=== PATIENT | female | born 1995 | race Caucasian/White ===

== ENCOUNTER 2018-07-14 18:37 | Inpatient (IN) | payer BC, OTHER ==
[~2018-07-14] VITALS: Ht 175.3 cm; Wt 63.5 kg
--- NOTE | 2018-07-14 10:03 | NUR ---
Pre-Assessment Patient met in intake office, patient is unkempt and disheveled with red eyes, she states that she is here to withdraw from Opiates ( Heroin IV ) and Benzodiazepines ( Valium and Ativan ). She states she last used 0.5G of heroin IV at 1pm today and 5 mg PO Ativan @ 2pm today. patient does not appear intoxicated at this time and is able to answer all questions clearly and concisely. VS BP 117/72, HR 100, RR 18, O2 SATS 93% T 98, she stands 5'9" and weighs 140lbs on standing scale She has No Known Allergies, Full code and Regular diet. Explained intake process and policy of controlled substances not allowed and will be destroyed if found on person or luggage, states she understands. Will continue with process when patient arrives on the unit.
[2018-07-14] MEDS ORDERED: diphenhydrAMINE 50 MG CAPSULE PO PRN (22:30)
[2018-07-14] MEDS ORDERED: DIAZEPAM 5 MG TABLET PO PRN (22:30)
[2018-07-14] MEDS ORDERED: MAG HYDROX/AL HYDROX/SIMETH 30 ML LIQUID UDC PO PRN (22:30)
[2018-07-14] MEDS ORDERED: MAGNESIUM HYDROXIDE 30 ML LIQUID UDC PO PRN (22:30)
[2018-07-14] MEDS ORDERED: ONDANSETRON 4 MG/2 ML VIAL IM PRN (22:30)
[2018-07-14] MEDS ORDERED: BUPRENORPHINE HCL 2 MG TAB.SUBL SL PRN (22:30)
[2018-07-14] MEDS ORDERED: ONDANSETRON ODT 4 MG TAB.RAPDIS SL PRN (22:30)
[2018-07-14] MEDS ORDERED: LOPERAMIDE HCL 2 MG CAPSULE PO PRN ×2 (22:30)
[2018-07-14] MEDS ORDERED: DICYCLOMINE HCL 20 MG TABLET PO PRN (22:30)
[2018-07-14] MEDS ORDERED: DIAZEPAM 10 MG TABLET PO PRN (22:30)
[2018-07-14] MEDS ORDERED: LORAZEPAM 2 MG/1 ML VIAL IM PRN (22:30)
[2018-07-14] MEDS ORDERED: ACETAMINOPHEN 325 MG TABLET PO PRN (22:30)
[2018-07-14] MEDS ORDERED: MIRALAX 17 GM POWD.PACK PO PRN (22:30)
[2018-07-14] MEDS ORDERED: IBUPROFEN 400 MG TABLET PO PRN (22:30)
[2018-07-14 22:50] LABS: BASOPHILS # (AUTO) 0.1 K/uL (0.0-8.0); BASOPHILS % (AUTO) 0.7 % (0.0-2.0); EOSINOPHILS % (AUTO) 0.6 % (0.0-7.0); HEMATOCRIT 44.7 % (31.2-41.9); HEMOGLOBIN 15.4 g/dL (10.9-14.3); LYMPHOCYTES # (AUTO) 1.6 K/uL (20.0-40.0); MEAN CORPUSCULAR HEMOGLOBIN 31.4 uug (24.7-32.8); MEAN CORPUSCULAR HGB CONC 34 g/dL (32.3-35.6); MEAN CORPUSCULAR VOLUME 91.5 fL (75.5-95.3); MONOCYTES # (AUTO) 0.6 K/uL (2.0-10.0); NEUTROPHILS # (AUTO) 5.5 K/uL (1.8-8.9); NEUTROPHILS % (AUTO) 70.7 % (38.5-71.5); PLATELET COUNT (AUTO) 315 K/uL (179-408); RED BLOOD CELL COUNT(AUTO) 4.88 MIL/uL (3.63-4.92); WHITE BLOOD COUNT (AUTO) 7.8 K/uL (3.8-11.8)
--- NOTE | 2018-07-14 23:00 | NUR ---
Admission Note: Patient is a 23 yr old female who was admitted to [facility] on 07/14/18 @ 2230 for a medically supervised withdrawal from Benzodiazepines ( Valium and Ativan ) and Opiates ( Heroin IV). She arrives disheveled and her eyes are red, she does not appear intoxicated and is able to provide a detailed report of her medical and substance abuse history. She states that she last used today : Ativan 5mg PO @ 2pm Heroin IV 0.5G @ 1pm today Valium last used 50mg PO on 07/11/18 Substance Use History: Ativan 6mg PO daily for past 3 weeks/ been using for 3 months ( Prescription) Valium 50mg PO daily for past 3 weeks/ been using for 3 months ( Prescription) Heroin IV 0.5G IV daily for past 3 weeks/ been using for 3 years. Her motivation she says is I need to get sober, nothing is working anymore. 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 Patient states that up until 3 weeks ago she had been sober , that her longest period of sobriety has been 4 months July 2017 to December 2017 when she spent 5 months inpatient at [facility]. Treatment History: [facility] February 2018 for 12 days [facility] January 2018 for 3 weeks [facility] 07/2017- 12/2017 for 5 months. Her barriers to staying sober are negative influences in her life, old friends who are still abusing drugs and her inability to say no to peer pressure. She has an extensive medical History due to pallavi MRSA Septicemia due to her IV drug use which led to open heart surgery x 5: 10/2016 MRSA Septicemia was hospitalized for 6 weeks and treated with IV Vancomycin. January 21 2017 Open heart surgery, abscess on heart removed , quadruple bypass, 2 valves replaced, 1 valve repaired, 6 weeks more of IV Vanco ( [facility]) March 2017 sober for 2 weeks , used heroin IV for 1 month, visit to [facility] showed vegetation on heart valve. ( [facility]) June 2017 open heart surgery , tricuspid valve replaced. 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 Mar 17 2018 Open heart surgery, replace 3 valves, removed abscess, quadruple bypass ( [facility]) Mar 19 2018 Internal bleeding after open heart surgery discovered, main artery was cut, surgery to repair. Despite all these complications she continues to use IV Heroin, when asked if that wasnt a warning sign she should stop she shrugs her shoulders and says it wasnt, I cant stop using. 1 month ago she purposely overdosed on 45 pills of Seroquel Medications: Lamictal 200mg PO daily in AM Gabapentin 600mg PO TID Remeron 30mg PO HS Strattera 40mg PO daily for ADHD She states that while at the [facility] in 2016 she was diagnosed with Anxiety, depression, Bipolar2 and PTSD She has family support from her parents and 2 sisters, she would like to go to Inpatient treatment at [facility] for 30 days after detox. 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 Patient states her withdrawal symptoms when she detoxs are : chills, diaphoresis, N/V, clammy skin, body aches and spasms. Height is 5' 9" 140lbs per standing scale. She has a 7" well healed scar on chest to navel from heart surgery and scars on thighs. Admitting COWS =17 ELENA 14. Addendum: 07/16/18 at 0230 by ADIEL SOLER RN Patient positive for hepatitis C
--- NOTE | 2018-07-14 23:00 | NUR ---
Confiscation of found contraband/ medication 4 Seroquel pills/ 100mg po found in Patients hat along with a syringe and patient safety officer confiscated and destroyed by Betty Velásquez CN
[2018-07-14 23:05] LABS: *URINE HCG, QUAL NEGATIVE (NEGATIVE)
[2018-07-14] MEDS ORDERED: [UNRECOGNIZED DRUG - CODE] PO (23:08)
[2018-07-14] MEDS ORDERED: FURO-151 PO (23:08)
[2018-07-14] MEDS ORDERED: MIRT30TA7 PO (23:08)
[2018-07-14] MEDS ORDERED: ATOM40CA PO (23:08)
[2018-07-14] MEDS ORDERED: LAMO200T PO (23:08)
[2018-07-14] MEDS ORDERED: GABA-534 PO (23:08)
[2018-07-14] MEDS ORDERED: LAMO25TA PO (23:08)
[2018-07-14] MEDS ORDERED: LORA1TAB PO (23:08)
[2018-07-14 23:09] LABS: *AMPHETAMINE, URINE NEGATIVE (NEGATIVE); *BARBITURATE, URINE NEGATIVE (NEGATIVE); *CANNABINOID, URINE NEGATIVE (NEGATIVE); *COCCAINE, URINE NEGATIVE (NEGATIVE); *OPIATE, URINE POSITIVE (NEGATIVE); *PHENCYCLIDINE SCREEN,URINE NEGATIVE (NEGATIVE)
[2018-07-14 23:12] LABS: ALANINE AMINOTRANSFERASE 25 U/L (14-59); ALKALINE PHOSPHATASE 68 U/L (50-136); AMYLASE 45 U/L (25-115); ASPARTATE AMINOTRANSFERASE 19 U/L (15-37); BILIRUBIN,TOTAL 0.5 mg/dL (0.2-1.0); CARBON DIOXIDE 26 mmol/L (21-32); CHLORIDE 103 mmol/L (98-107); CREATININE 0.8 mg/dL (0.6-1.3); GLUCOSE 95 mg/dL (74-106); LIPASE 77 U/L (73-393); MAGNESIUM 1.8 mg/dL (1.8-2.4); TOTAL PROTEIN, SERUM 7.9 g/dL (6.4-8.2); UREA NITROGEN, BLOOD 10 mg/dL (7-18)
[2018-07-14 23:17] LABS: ETHANOL < 3 MG/DL (0-0)
[2018-07-14 23:23] LABS: THYROID STIMULATING HORMONE 1.129 mIU/mL (0.358-3.740)
[2018-07-15] VITALS: BP 136/80
[2018-07-15] MEDS: DIAZEPAM 10 MG TABLET PO PRN ×2 (00:44→21:16)
--- NOTE | 2018-07-15 00:45 | NUR ---
CIWA 17 Valium 20 mg PO given for CIWA 17 per MD protocol for s/s of withdrawal Patient displays diaphoresis, shakiness, goose bumps, dilated pupils, increased anxiety and difficulty thinking clearly.
[2018-07-15 04:10] VITALS: BP 94/60
--- NOTE | 2018-07-15 06:58 | NUR ---
End Of Shift: Patient is 23 yr old female who was admitted to [place] on 07/14/18 for a medically supervised withdrawal from Benzodiazepines ( Valium and Ativan) and Opiates ( heroin). She has not been placed on any taper yet and is still to be seen by MD. PRN medications given on PM shift : Valium 20mg PO. She had a fluid intake this shift of 750ml, 3 voids and 0 BM, she slept for 6 hours and last COWS was 18 and CIWA 17 @ 0100. Continue to offer support and encouragement. Endorsed to day shift.
--- NOTE | 2018-07-15 07:30 | NUR ---
START OF SHIFT Endorse rcvd from ongoing nurse, PRN Valium 20mg PO for CIWA 18, client slept 6 hrs. Last CIWA 18/ COWS 17 @ 0100. Client is in bed, lying on her R side, she sounds asleep, easy to arouse. RR 16, even, non-labored. Call light within reach. Bedside table noted with 10 un-opened snack bags and 7 bottles of juice. Will continue to monitor. Call light within reach.
[2018-07-15 08:00] VITALS: BP 99/59
[2018-07-15] MEDS ORDERED: TUBERCULIN,PURIF.PROT.DERIV. 5 TU/0.1 ML TEST ID ONE (09:00)
[2018-07-15] MEDS: PHENOBARBITAL 60 MG TABLET PO SCH ×4 (09:46→20:02)
[2018-07-15] MEDS: BUPRENORPHINE HCL 2 MG TAB.SUBL SL SCH ×3 (09:46→20:02)
[2018-07-15] MEDS: MULTIVITAMINS,THERAPEUTIC TABLET PO SCH (09:46)
--- NOTE | 2018-07-15 09:46 | NUR ---
PPD Test administered to L forearm.
--- NOTE | 2018-07-15 09:47 | NUR ---
CIWA 19 / COWS 18 Client with [place] under eyes, presents with anxiety, irritability, skin moist, flushed face, enlarged pupil, tremors, yawning, emotional volatility, and difficult concentrating. Client reports generalized body aches 5/10, nausea, stomach cramps, sweats, a sense of panic, and no desire to get off bed. Schedule Subutex 4mg SL, Phenobarbital 30mg PO administered. Encourage client to verbalized feelings of despair, support offered. Encourage client to increase PO fluid as tolerated to facilitate detox. Call light within reach.
[2018-07-15 12:00] VITALS: BP 108/77
[2018-07-15] MEDS: GABAPENTIN 300 MG CAPSULE PO SCH ×2 (13:00→16:55)
--- NOTE | 2018-07-15 13:00 | NUR ---
CIWA 17 / COWS 17 Client present with tremors, anxiety, restlessness, emotional volatility, pins and needle on bilateral lower extremities, agitation, anhedonia, difficulty concentrating, malaise, fatigue, chills, hot flashes, sweats, and poor appetite. Scheduled Phenobarbital 30mg PO, Gabapentin 300mg PO administered. Call light within reach.
[2018-07-15] MEDS: METHOCARBAMOL 750 MG TABLET PO PRN ×2 (13:06→20:02)
--- NOTE | 2018-07-15 13:06 | NUR ---
PRN Robaxin 750mg PO for Myalgia on BLE. Call light within reach.
--- NOTE | 2018-07-15 14:06 | NUR ---
Reassess PRN Robaxin 750mg, client reports slight relief from myalgia on BLE. Call light within reach.
[2018-07-15 16:55] VITALS: BP 112/79
[2018-07-15] MEDS: ATOMOXETINE 40 MG PO SCH (16:55)
--- NOTE | 2018-07-15 16:55 | NUR ---
CIWA 17 / COWS 16 Client continues to present with tremors, anxiety, restlessness, pins and needle feeling in both legs, anhedonia, difficulty concentrating, malaise, fatigue, chills, hot flashes, clammy skin, agitation, nausea, and poor appetite. Scheduled Phenobarbital 30mg PO, Gabapentin 300mg PO administered. Call light within reach.
--- NOTE | 2018-07-15 19:21 | NUR ---
END OF SHIFT Endorse client to incoming nurse, client is in room, a/o x 4. Client continues to present with anxiety, agitation, nausea, emotional volatility, flushed face skin, clammy skin, poor appetite, stomach cramps, and fatigue. Client's with last CIWA 17 / COWS 16 @ 1700. Adequate PO fluid intake 1850mL, void x 3. Consumes 50% of meals. Call light within reach.
--- NOTE | 2018-07-15 19:30 | NUR ---
Start of Shift: Patient is a 23 yr old female who was admitted to [facility] on 07/14/18 for a medically supervised withdrawal from Benzodiazepines ( Valium and Ativan ) and Opiates ( heroin IV), she has been placed on a 4 day Phenobarbital taper and 4 day Subutex taper and this is day 1 No PRN medications were given today, she attended group therapy and her last COWS was 16 and CIWA 17 @ 1600. Currently she is in the Rec Room watching TV with her peers. Continue to follow MD plan of care and offer support as needed.
[2018-07-15 20:00] VITALS: BP 119/85
--- NOTE | 2018-07-15 20:00 | NUR ---
PRN Robaxin 750MG PO given for generalized muscle aches 05/22 will reassess
[2018-07-15] MEDS: LAMOTRIGINE 25 MG TABLET PO SCH (20:02)
--- NOTE | 2018-07-15 21:00 | NUR ---
PRN Reassess Robaxin 750mg PO effective per pt report, pain level now 2/10
--- NOTE | 2018-07-15 21:00 | NUR ---
COWS 14 CIWA 17 Patient presents with increased anxiety, irritability, difficulty concentrating, restlessness and lethargy. Per PRN protocol Valium 20mg PO will be given
--- NOTE | 2018-07-15 21:16 | NUR ---
PRN Valium Valium 20mg PO given for CIWA 17 per MD protocol withdrawal symptoms present as increased anxiety, restlessness, irritability and difficulty thinking clearly.
--- NOTE | 2018-07-15 22:16 | NUR ---
Valium Reassess Patient states Valium 20mg PO was effective, anxiety and irritation have decreased.Valium effective
[2018-07-15] MEDS: MIRTAZAPINE 15 MG TABLET PO SCH (22:25)
--- NOTE | 2018-07-16 | NUR ---
CIWA/VITALS patient refused vitals and wants to sleep through the night, RR 14, breathing even and unlabored, call light within reach.
--- NOTE | 2018-07-16 04:00 | NUR ---
CIWA/VITALS patient refused vitals and wants to sleep through the night, RR 14, breathing even and unlabored, call light within reach.
[2018-07-16 05:00] VITALS: BP 112/59
--- NOTE | 2018-07-16 06:50 | NUR ---
End Of Shift: Patient is 23 yr old female who was admitted to [facility] on 07/14/18 for a medically supervised withdrawal from Benzodiazepines ( Valium and Ativan) and Opiates ( heroin). She has been placed on a 4 day Phenobarbital and 4 day Subutex taper which started 07/15/18 and this is day 2. PRN medications given this shift: Robaxin and Valium 20mg PO, she had a fluid intake of 800ML, 2 voids and 0 BM, she slept for 7 hours and last COWS was 14 and CIWA 17 @ 8pm. She is motivated to learn new coping skills and is eager to attend groups with her peers. Continue to offer support and encouragement. Endorsed to day shift.
[2018-07-16 08:00] VITALS: BP 90/60
--- NOTE | 2018-07-16 08:10 | NUR ---
START OF SHIFT: Received PT A/O X 4. She presents with anxious mood and congruent affect. Her pupils are moderately dilated. She reports body aches, fatigue,anxiety,restlessness,sweats and chills. Pheno/Subutex taper in progress to manage s/s of w/d. COWS 14 CIWA 12. Encouraged increased fluids to promote wellness. Sz precautions noted. Encouraged group attendance to improve coping skills and prevent relapse.Will continue to monitor and offer support
[2018-07-16] MEDS: ATOMOXETINE 40 MG PO SCH (08:59)
[2018-07-16] MEDS ORDERED: BUPRENORPHINE HCL 2 MG TAB.SUBL SL SCH (09:00)
[2018-07-16] MEDS: FUROSEMIDE 40 MG TABLET PO SCH (09:00)
[2018-07-16] MEDS: GABAPENTIN 300 MG CAPSULE PO SCH ×3 (09:00→17:38)
[2018-07-16] MEDS: PHENOBARBITAL 60 MG TABLET PO SCH ×3 (09:03→21:11)
[2018-07-16] MEDS: MULTIVITAMINS,THERAPEUTIC TABLET PO SCH (09:03)
[2018-07-16 12:00] VITALS: BP 106/79
--- NOTE | 2018-07-16 12:10 | NUR ---
COWS 13 CIWA 13. She reports sweats,chills,anxiety,body aches,poor appetite and fatigue.
--- NOTE | 2018-07-16 12:41 | NUR ---
Therapist prompted client to attend group therapy sessions.
[2018-07-16] MEDS: BUPRENORPHINE HCL 2 MG TAB.SUBL SL SCH ×2 (14:56→21:13)
[2018-07-16 16:00] VITALS: BP 90/60
--- NOTE | 2018-07-16 18:50 | NUR ---
END OF SHIFT: Pt continues on Phenobarb/Subutex taper to manage s/s of w/d which include body aches,sweats,chills,anxiety,irritability and restlessness. She was compliant with increased fluids.She states detox meds are effective. She attended some groups and interacted with peers. Pt has a fair appetite. COWS 12 CIWA 10 Will pass shift report to [facility] night nurse.
--- NOTE | 2018-07-16 19:30 | NUR ---
START OF SHIFT Received 23 year old male female patient admitted on 07/14/18 for Benzodiazepine ( Valium & Ativan) and Opiate (Heroin) withdrawal. Pt is alert and oriented x4. Pt is noted with anxiety, chills, sweats, agitation, runny nose, body aches, restlessness, and irritability. She is currently receiving a 4 day Phenobarbital and 4 day Subutex taper and is tolerating well. Per endorsement, she did not receive or request PRN medications. Last COWS:12, CIWA:10 at 1600. Breathing is even and unlabored, safety measures in place. Will monitor.
[2018-07-16 20:00] VITALS: BP 112/81
--- NOTE | 2018-07-16 20:00 | NUR ---
COWS/CIWA Pt complains of body aches, chills, sweats, runny nose, anxiety, agitation, and restlessness. COWS:11, CIWA:9 prior to medication administration. Will monitor.
[2018-07-16] MEDS: LAMOTRIGINE 25 MG TABLET PO SCH (21:11)
[2018-07-16] MEDS: MIRTAZAPINE 15 MG TABLET PO SCH (21:12)
--- NOTE | 2018-07-17 | NUR ---
VITALS REFUSED/COWS, CIWA DEFERRED 0000 vitals refused. COWS and CIWA deferred d/t pt lying in bed with eyes closed noted to be asleep. Breathing even and unlabored, safety measures in place. Will monitor.
--- NOTE | 2018-07-17 01:40 | NUR ---
COWS/CIWA Pt complains of runny nose, anxiety, agitation, body aches, chills/sweats. COWS:10, CIWA:8. Will continue to monitor.
[2018-07-17 01:42] VITALS: BP 115/85
--- NOTE | 2018-07-17 04:00 | NUR ---
VITALS REFUSED/COWS, CIWA DEFERRED 0400 vitals refused. COWS and CIWA deferred d/t pt lying in bed with eyes closed noted to be asleep. Breathing even and unlabored, safety measures in place. Will continue to monitor.
--- NOTE | 2018-07-17 07:15 | NUR ---
END OF SHIFT Pt is a 23 year old male female patient admitted on 07/14/18 for Benzodiazepine ( Valium & Ativan) and Opiate (Heroin) withdrawal. She remains alert and oriented x4. She was noted with anxiety, chills, sweats, agitation, runny nose, body aches, restlessness, and irritability during the shift. She continues on a 4 day Phenobarbital and 4 day Subutex taper and is tolerating well. She did not receive or request PRN medications. She slept a total of 6 hrs, Intake: 691mL, Void: x4, BM:0, last COWS:10, CIWA:8 at 0140. Breathing is even and unlabored, safety measures in place. Endorsed to AM shift.
--- NOTE | 2018-07-17 07:50 | NUR ---
Start Of Shift / COWS 12 and CIWA 11 Pt is a 23 y/o F admitted on 07/14/18 for medically suprvised benzo and opiate withdrawal. Pt is placed on a 4 day phenobarbital and subutex taper; today being the second day and tolerating well. Received pt laying in bed, drowsy from just waking up from sleeping. Pt has a disheveled appearance, a flat affect, depressive mood. Pt presents agitation, anxiety, restlessness, irritability, tremors, body aches, sweating, cold/hot flashes, goosebumps, nasal congestion and tremors noted. Educated pt with todays med regimen, plan of care and s/s to report. Encouraged pt to increase fluids to facilitate in detox. Side rails upx2, bed in lowest position. Call light is within reach. Safety measures in place. Will continue to monitor.
[2018-07-17 08:00] VITALS: BP 97/64
[2018-07-17] MEDS: PHENOBARBITAL 60 MG TABLET PO SCH ×2 (09:13→21:20)
[2018-07-17] MEDS: BUPRENORPHINE HCL 2 MG TAB.SUBL SL SCH ×3 (09:13→21:21)
[2018-07-17] MEDS: MULTIVITAMINS,THERAPEUTIC TABLET PO SCH (09:13)
[2018-07-17] MEDS: GABAPENTIN 300 MG CAPSULE PO SCH ×3 (09:13→16:46)
[2018-07-17] MEDS: ATOMOXETINE 40 MG PO SCH (09:25)
[2018-07-17] MEDS: FUROSEMIDE 40 MG TABLET PO SCH (09:25)
[2018-07-17 12:00] VITALS: BP 118/74
--- NOTE | 2018-07-17 12:00 | NUR ---
COWS 15 / CIWA 13 Pt continues to have a depressive and anxious mood; pt has just left group and has increased anxiety, agitation, restlessness, irritability, tremors, sweating, piloerection of the skin, large dilation of the pupils, cold/hot flashes, generalized body aches, sensitivity to the light, nasal congestion and tremors noted. scheduled meds to be given. Refuses prns at this time. Will continue to monitor.
[2018-07-17] MEDS ORDERED: CLONIDINE HCL 0.1 MG TABLET PO PRN (13:45)
[2018-07-17 14:11] LABS: HEPATITIS B SURFACE AG Negative (Negative)
[2018-07-17 16:00] VITALS: BP 110/82
--- NOTE | 2018-07-17 16:30 | NUR ---
COWS 15 / CIWA 13 Pt has just exited group and is impatiently waiting to go downstairs to the patio. Explained to pt that she needs to get her VS checked first. Pt continues to present anxiety, agitation, restlessness, tremors, sweating, piloerection of the skin, large dilation of the pupils, cold/hot flashes, generalized body aches, sensitivity to the light, nasal congestion and tremors noted. Scheduled gabapentin to be given now. Refuses prns at this time. Will continue to monitor.
--- NOTE | 2018-07-17 18:34 | NUR ---
End Of Shift Pt continues to have large dilated pupils, intermittent piloerection of the skin, anxiety, and restlessness. Pt attended all groups and states she is trying hard to participate. Pt verbalized subutex and phenobarbital taper has been effective in managing her s/s of witdrawal. No prns given. Last COWS 15 and CIWA 13. Safety measures in place. Endorsement will be given to shift commander nurse.
--- NOTE | 2018-07-17 18:52 | NUR ---
START OF SHIFT NOTE: The patient is a 23 year old female admitted to [facility] on 07/14/2018 for medically supervised from Benzodiazepines and Opioid withdrawal, continues ordered 4 day Phenobarbital and 4 day Subutex tapers (today is second day), which tolerated well. Patient is alert and oriented x4, with steady gait, and with clear soft speech, cooperative, and verbally appropriate. Patient appears sad, worried, with anxious mood and flat affect. Patient noted disheveled, unkempt, with uncombed hair. Patient denies SI/HI. The most recent COWS=15, CIWA=13 at 1600. During day shift patient experienced moderate withdrawal symptoms such as anxiety, agitation, irritability, bilateral dilated pupils, nervousness, general body aches, headache, sweating, bilateral tremors that can be felt not observe, goose bumps, restlessness, and fatigue per day shift nurse report. Patient remains compliant with treatment, medications, and diet regimen. Encouraged to attend group activities. Safe and calm environment provided. Encouraged to intake fluids as tolerated. All needs met. Safety measures: Call light within reach, bed locked in lowest position, padded bed rails up x2. Endorsed by day shift nurse.
[2018-07-17 20:00] VITALS: BP 105/77
--- NOTE | 2018-07-17 20:00 | NUR ---
COWS/CIWA ASSESSMENT COWS=14,CIWA=12 at 2000. The patient experienced moderate withdrawal symptoms such as anxiety, agitation, irritability, bilateral dilated pupils, nervousness, severe general body aches, headache, sweating, stomach cramps, bilateral tremors, restlessness, fatigue, and yawning. Ordered medications scheduled for 2099 will be administrated. Safe and calm environment provided. All needs met. Safety measures: Call light within reach, bed locked in lowest position, padded bed rails up x2. Will continue to monitor closely.
[2018-07-17] MEDS: MIRTAZAPINE 15 MG TABLET PO SCH (21:21)
[2018-07-17] MEDS: LAMOTRIGINE 25 MG TABLET PO SCH (21:21)
--- NOTE | 2018-07-18 | NUR ---
VS REFUSED, COWS/CIWA DEFERRED Patient sleeping on her side, respirations are unlabored and even, RR:15. Patient refused VS at 0000, COWS/CIWA differed at 0000, to be assessed while patient will awake. Safe and calm environment provided. All needs met. Safety measures: Call light within reach, bed locked in lowest position, padded bed rails up x2.
--- NOTE | 2018-07-18 04:00 | NUR ---
VS REFUSED, COWS/CIWA DEFERRED Patient sleeping on her side, respirations are unlabored and even, RR:15. Patient refused VS at 0000, COWS/CIWA differed at 0000, to be assessed while patient will awake. Safe and calm environment provided. All needs met. Safety measures: Call light within reach, bed locked in lowest position, padded bed rails up x2. Addendum: 07/18/18 at 0436 by MILLIE OVIEDO RN Patient refused VS at 0400, COWS/CIWA differed at 0400, to be assessed while patient will awake.
--- NOTE | 2018-07-18 07:16 | NUR ---
END OF SHIFT NOTE: The patient is a 23 year old female admitted to [facility] on 07/14/2018 for medically supervised from Benzodiazepines and Opioid withdrawal, continues ordered 4 day Phenobarbital and 4 day Subutex tapers (today is second day), which tolerated well. Patient is alert and oriented x4, with steady gait, and with clear soft speech, cooperative, and verbally appropriate. Patient appears sad, worried, with anxious mood and flat affect. Patient noted disheveled, unkempt, with uncombed hair. COWS=14,CIWA=12 at 2000. Patient refused VS at 0000 and at 0400, COWS/CIWA differed at 0000 and 0400. Throughout my shift patient experienced moderate withdrawal symptoms such as anxiety, agitation, irritability, bilateral dilated pupils, nervousness, severe general body aches, headache, sweating, stomach cramps, bilateral tremors, restlessness, fatigue, and yawning. During my shift patient experienced mild withdrawal symptoms such as anxiety, agitation, irritability, nervousness, sweating, bilateral tremors, and restlessness. Patient remains compliant with treatment, medications, and diet regimen. Patient slept for 6 hours, intake 1,210 ml, output: voided x2. Safe and calm environment provided. Encouraged to intake fluids as tolerated. All needs met. Safety measures: Call light within reach, bed locked in lowest position, padded bed rails up x2. Endorsed to day shift nurse.
--- NOTE | 2018-07-18 07:51 | NUR ---
Start Of Shift / COWS 14 and CIWA 12 Pt is a 23 y/o F admitted on 07/14/18 for medically suprvised benzo and opiate withdrawal. Pt is placed on a 4 day phenobarbital and subutex taper; today being the third day and pt is tolerating well. Received pt laying in bed, drowsy, pt has a flat affect, poor eye contact, disheveled appearance, and a depressive mood. Pt presents large dilated pupils, agitation, anxiety, restlessness, irritability, tremors, sweating, cold/hot flashes, goosebumps, nasal congestion generalized body aches and tremors noted. Educated pt with todays med regimen, plan of care and s/s to report. Encouraged pt to increase fluids to facilitate in detox. Side rails upx2, bed in lowest position. Call light is within reach. Safety measures in place. Will continue to monitor.
[2018-07-18 08:06] VITALS: BP 97/67
[2018-07-18] MEDS ORDERED: PHENOBARBITAL 60 MG TABLET PO SCH (09:00)
[2018-07-18] MEDS ORDERED: BUPRENORPHINE HCL 2 MG TAB.SUBL SL SCH (09:00)
[2018-07-18] MEDS: ATOMOXETINE 40 MG PO SCH (09:36)
[2018-07-18] MEDS: GABAPENTIN 300 MG CAPSULE PO SCH ×3 (09:37→18:10)
[2018-07-18] MEDS: MULTIVITAMINS,THERAPEUTIC TABLET PO SCH (09:37)
[2018-07-18] MEDS: FUROSEMIDE 40 MG TABLET PO SCH (09:37)
[2018-07-18 12:36] VITALS: BP 86/56
--- NOTE | 2018-07-18 12:36 | NUR ---
COWS 14 and CIWA 12 Pt has returned from group and is currently laying in bed, with eyes closed stating she wants to take a nap. Pt continues to presents large dilated pupils, agitation, anxiety, restlessness, irritability, tremors, sweating, cold/hot flashes, goosebumps, nasal congestion generalized body aches and tremors noted. Refuses prns at this time. Safety measures in place. Will continue to monitor.
--- NOTE | 2018-07-18 13:21 | NUR ---
Therapist prompted client to attend group counseling sessions.
[2018-07-18] MEDS ORDERED: CLON0.1T14 PO (15:01)
[2018-07-18] MEDS ORDERED: HYDR-3895 PO (15:01)
[2018-07-18] MEDS: CLONIDINE HCL 0.1 MG TABLET PO PRN ×2 (15:02→21:16)
[2018-07-18 16:30] VITALS: BP 102/67
--- NOTE | 2018-07-18 16:30 | NUR ---
COWS 11 and CIWA 10 Pt continues to presents chills, states she is beginning to feel increased alternating of hot and cold, sweating, agitation, anxiety, restlessness, irritability, tremors, intermittent goosebumps, nasal congestion, generalized body aches and tremors noted. Refuses prns at this time. Safety measures in place. Will continue to monitor.
--- NOTE | 2018-07-18 19:13 | NUR ---
End Of Shift Pt has finished the subutex and phenobarbital tapers and tolerated well. Pt is scheduled to be discharged tomorrow. Pt verbalized that she was beginning to feel a slight increase in opiate withdrawal and was given clonidine 0.1 mg po prn. Pt has exhibited elevated HR; 107 @1630. Last COWS 11 and CIWA 10. Safety measures in place. Endorsement will be given to shift boss nurse.
--- NOTE | 2018-07-18 19:25 | NUR ---
START OF SHIFT Patient is a 23-year-old female admitted on 07/14/18 for opiate and benzodiazepine withdrawal. Patient has completed a 4-day Phenobarbital taper and a 4-day Subutex taper, tolerated well, scheduled for discharge tomorrow. Patient's last COWS was 11, last CIWA was 10, per endorsement. Patient received PRN Clonidine earlier this afternoon for complaints of anxiety, chills, and diaphoresis. PRN Clonidine was noted to be mildly effective. Upon assessment, patient is alert and oriented x4. Patient complains of feeling tired, achy, and "no energy." Patient states, "I don't feel good. I've had chills and sweats all day." Patient's room is cluttered with several food and beverage wrappers and containers strewn about. Patient is on fall and seizure precautions with no history of seizure. Safety measures in place, side rails up x2, bed locked in low position, call light within reach. Medications scheduled, will continue to monitor.
[2018-07-18 20:00] VITALS: BP 111/78
--- NOTE | 2018-07-18 20:00 | NUR ---
COWS 14, CIWA 11 Patient reports feeling unwell, complaining of cold/hot sweats, chills, and diaphoresis. Patient reports anxiety and restlessness. Current COWS 14, CIWA 11. SN to administer meds as ordered.
[2018-07-18] MEDS: LAMOTRIGINE 25 MG TABLET PO SCH (21:16)
[2018-07-18] MEDS: HYDROXYZINE PAMOATE 25 MG CAPSULE PO PRN (21:16)
--- NOTE | 2018-07-18 21:16 | NUR ---
PRN CLONIDINE & VISTARIL Patient complains of anxiety, agitation, restlessness, and irritability. PRN Clonidine and Vistaril given PO. Safety measures in place, side rails up x2, bed locked in low position, call light within reach. Will monitor for effectiveness.
[2018-07-18] MEDS ORDERED: LAMO25TA5 PO (21:19)
[2018-07-18] MEDS ORDERED: GABA-534 PO (21:19)
[2018-07-18] MEDS ORDERED: MIRT15TA7 PO (21:19)
[2018-07-18] MEDS ORDERED: METH-406 PO (21:19)
[2018-07-18] MEDS ORDERED: FURO40TA5 PO (21:19)
[2018-07-18] MEDS: METHOCARBAMOL 750 MG TABLET PO PRN (21:24)
--- NOTE | 2018-07-18 21:24 | NUR ---
PRN ROBAXIN Patient also complains of muscle aches, stating, "I feel tired and achy." PRN Robaxin 750mg given PO. Safety measures in place, call light within reach. Will monitor for effectiveness.
[2018-07-18] MEDS: MIRTAZAPINE 15 MG TABLET PO SCH (22:15)
--- NOTE | 2018-07-18 22:16 | NUR ---
PRN CLONIDINE & VISTARIL REASSESSMENT Patient reports feeling less anxious and less restless. PRN Clonidine and Vistaril noted to be effective. Safety measures in place, side rails up x2, bed locked in low position, call light within reach. Will continue to monitor.
--- NOTE | 2018-07-18 22:24 | NUR ---
PRN ROBAXIN REASSESSMENT Patient reports improvement in body aches. PRN Robaxin noted to be effective. Safety measures in place, side rails up x2, bed locked in low position, call light within reach. Will continue to monitor.
[2018-07-19] VITALS: BP 90/55
--- NOTE | 2018-07-19 | NUR ---
COWS & CIWA DEFERRED COWS and CIWA deferred at this time due to patient sleeping; to be assessed and scored while patient is awake. Respirations even and unlabored. Safety measures in place, side rails up x2, bed locked in low position, call light within reach. Will continue to monitor.
[2018-07-19 04:00] VITALS: BP 88/52
--- NOTE | 2018-07-19 04:00 | NUR ---
COWS & CIWA DEFERRED COWS and CIWA deferred due to patient sleeping; to be assessed and scored while patient is awake, per protocol. Respirations are even and unlabored. Safety measures in place, side rails up x2, bed locked in low position, call light within reach. Will continue to monitor.
--- NOTE | 2018-07-19 07:20 | NUR ---
END OF SHIFT Patient is a 23-year-old female admitted on 07/14/18 for opiate and benzodiazepine withdrawal. Patient has completed a 4-day Phenobarbital taper and a 4-day Subutex taper, tolerated well, scheduled for discharge today. Patient's last COWS was 14, last CIWA was 11. Patient received the following PRN medications: Clonidine, Vistaril, and Robaxin. PRNs were noted to be effective. Patient slept for 7 hours, total intake of 1,200mL, void x2, stool x0. Patient is on fall and seizure precautions with no history of seizure. Safety measures in place, side rails up x2, bed locked in low position, call light within reach. Will endorse to day shift.
--- NOTE | 2018-07-19 07:30 | NUR ---
START OF SHIFT Pt 23 y/o female admitted for benzo / opiate withdrawal. Pt received in room on bed with eyes closed resting. Alert and oriented to name, place, and time. Perrla. Skin warm and dry to touch. Respirations even and unlabored. Appears disheveled. Clothes and food wrappings scattered throughout the room. Encouraged to maintain hygiene. Hair uncombed. Complaints of body aches. Complaints of generalized discomfort. It was reported that pt slept for 8 hours last night. Last cows=14 ciwa=11 @1999. Pt completed a 4 day phenobarbital taper and a 4 day subutex taper. Bed on lowest position with side rails x2 up for safety. Call light within reach. Pt is scheduled to be discharged today to [facility].
[2018-07-19] MEDS: METHOCARBAMOL 750 MG TABLET PO PRN (09:22)
[2018-07-19] MEDS: MULTIVITAMINS,THERAPEUTIC TABLET PO SCH (09:22)
[2018-07-19] MEDS: HYDROXYZINE PAMOATE 25 MG CAPSULE PO PRN (09:22)
[2018-07-19] MEDS: ATOMOXETINE 40 MG PO SCH (09:22)
[2018-07-19] MEDS: GABAPENTIN 300 MG CAPSULE PO SCH (09:22)
[2018-07-19] MEDS: FUROSEMIDE 40 MG TABLET PO SCH (09:22)
--- NOTE | 2018-07-19 09:25 | NUR ---
PRN ROBAXIN AND VISTARIL Anxious and restless. Pressured speech. Vistaril po prn per MD order given and tolerated well. /Complaints of generalized body aches . Robaxin po prn per MD order given and tolerated well.
--- NOTE | 2018-07-19 09:57 | NUR ---
DISCHARGE Pt 23 y/o female admitted for benzo/ opiate withdrawal. Alert and oriented to name, place, and time. Perrla. Skin warm and dry touch. Respirations even and unlabored. No belongings in cassette or cabinet noted. Discharge papers, prescriptions, and home medications packed in pt bag. Pt discharged to [facility] via private transport. Denies any SI/ HI. VS wnl. No distress noted.
== END 2018-07-19 09:57 | disposition other institution (70) | DRG 895 ==
LOC: SRC 21:33
PROVIDERS: ADMIT Family Medicine Addiction Medicine; ATTEND Internal Medicine
PROC: HZ2ZZZZ Detoxification Services for Substance Abuse Treatment (ICD-10-PCS; principal; 2018-07-14)
PROC: HZ41ZZZ Group Counseling for Substance Abuse Treatment, Behavioral (ICD-10-PCS; 2018-07-15)
PROC: HZ31ZZZ Individual Counseling for Substance Abuse Treatment, Behavioral (ICD-10-PCS; 2018-07-16)
DX: F10.239 Alcohol dependence with withdrawal, unspecified (principal); F31.60 Bipolar disorder, current episode mixed, unspecified; F11.23 Opioid dependence with withdrawal; Y90.9 Presence of alcohol in blood, level not specified; F43.10 Post-traumatic stress disorder, unspecified; I25.10 Atherosclerotic heart disease of native coronary artery without angina pectoris; F17.210 Nicotine dependence, cigarettes, uncomplicated; Z91.89 Other specified personal risk factors, not elsewhere classified; Z86.73 Personal history of transient ischemic attack (TIA), and cerebral infarction without residual deficits; Z95.1 Presence of aortocoronary bypass graft; Z95.2 Presence of prosthetic heart valve; Z91.19 Patient's noncompliance with other medical treatment and regimen; F13.239 Sedative, hypnotic or anxiolytic dependence with withdrawal, unspecified; B19.20 Unspecified viral hepatitis C without hepatic coma; F90.9 Attention-deficit hyperactivity disorder, unspecified type; Z86.14 Personal history of Methicillin resistant Staphylococcus aureus infection; I25.2 Old myocardial infarction
CPT/HCPCS: 36415; 70030-TC; 80307; 80346; 80361; 83690; 83735; 84443; 84703; 85025; 86580; 86592; 86705; 86803; 87340; 87806; A4663; G0480; J8499

== ENCOUNTER 2018-09-26 17:23 | Inpatient (IN) | payer BC, OTHER ==
[~2018-09-26] VITALS: Ht 175.3 cm; Wt 68.5 kg
[~2018-09-26 17:23] MED LIST: CLON0.1T14 PO; FURO40TA5 PO; GABA-534 PO; HYDR-3895 PO; LAMO25TA5 PO; METH-406 PO; MIRT15TA7 PO
--- NOTE | 2018-09-26 21:25 | NUR ---
INTAKE ASSESSMENT BP:117/72, HR:95, RR:16, SpO2:100% Pt is in stable condition and able to be admitted on the unit. Unit protocols regarding medications and vital signs Q4H were explained. Pt verbalized understanding. Will continue assessment upon arrival on the unit.
--- NOTE | 2018-09-26 21:40 | NUR ---
Admission note Pt is a 23 yo female, A+Ox4, presenting to [facility] for medically supervised Opiate withdrawal. Pt has also been using Methamphetamines and Cocaine. Pt has NKA, is on Full code status, and on cardiac diet. Pt is 59 in height and 151 LBS in weight. Pt appears moderately intoxicated. Pt noted with unkempt hair and clothing, but with no apparent odor coming from breath/body. Pt is cooperative and compliant. Pt appears lethargic and is falling asleep during interview. Substance Use/History: 1. Heroin IV- Pt first started using at the age of 20- has been currently taking 0.5gm/daily for the past week- Last dose was 0.25gm on 09-26-18 @1200. 2. Methamphetamine- Pt first started using at the age of 20- has been currently taking 0.5gm/daily- Last dose was 0.5gm on 09-26-18 @1200. 3. Cocaine- Pt first started using at the age of 16- has been currently using 0.25gm/daily- Last dose was 0.25gm on 09-25-18. Withdrawal: Pt describes her common withdrawal symptoms to be sweating, chills, body aches, nausea/vomiting, and diarrhea. Pt does not express any withdrawal symptoms at this time due to moderate intoxication and lethargy. Consequences of substance abuse: Pt has no HX of seizure nor withdrawal induced delirium. Pt has HX of 4 strokes and 6 open heart Sxs possibly due to substance abuse, Last occurrences were in March 2018. Pt has HX of Overdose, Last occurrence in March 2018. Pt reports having multiple incidents of blackouts but cannot recall the last time. Medical/Psychiatric conditions: Pt has no primary care provider nor psychiatrist 1. 4 Strokes- Last in March 2018 2. 6 Open heart SXs- Last in March 2018 3. Left sided mild weakness 4. Anxiety 5. Depression 6. Bipolar Disorder 7. Insomnia 8. Overdose- March 2018 Psychiatric complications: Pt has no HX of SI/SA/HI nor any HX of 5150 psychiatric holds. Treatment HX: Detox @ [facility] for 7 days in 07/2018 followed by about 53 days rehab @ [facility] ending in 09/2018. Pt relapsed about 1 week ago. Motivation: Pt states, I need to get sober again and back into treatment so that I can be healthy for my future. I am sick and tired of being sick and tired. Maral tried to get sober on my own before and it was really hard and thats why I went to treatment 2 months ago and why I am here now. I plan to go to rehab treatment again after I leave here. I tried to go to another facility but they told me that I needed a hospital setting because of my heart condition. I have been going to AA meetings and I have a sponsor. My friends have been my support system. V/S WNL, respirations even and unlabored. Will continue to monitor. Addendum: 09/27/18 at 619 by NEETU LANG LVN V/S= b/p-117/82, HR-95, RR- 18, O2- 99%, T- 98.2, Pain- 0/10. Addendum: 09/27/18 at 620 by NEETU LANG LVN COWS deferred for moderate intoxication.
[2018-09-26 21:45] VITALS: BP 117/82
[2018-09-26] MEDS ORDERED: MAGNESIUM HYDROXIDE 30 ML LIQUID UDC PO PRN (23:15)
[2018-09-26] MEDS ORDERED: BUPRENORPHINE HCL 2 MG TAB.SUBL SL PRN (23:15)
[2018-09-26] MEDS ORDERED: ONDANSETRON 4 MG/2 ML VIAL IM PRN (23:15)
[2018-09-26] MEDS ORDERED: diphenhydrAMINE 50 MG CAPSULE PO PRN (23:15)
[2018-09-26] MEDS ORDERED: LOPERAMIDE HCL 2 MG CAPSULE PO PRN ×2 (23:15)
[2018-09-26] MEDS ORDERED: MAG HYDROX/AL HYDROX/SIMETH 30 ML LIQUID UDC PO PRN (23:15)
[2018-09-26] MEDS ORDERED: ONDANSETRON ODT 4 MG TAB.RAPDIS SL PRN (23:15)
[2018-09-26] MEDS ORDERED: MIRALAX 17 GM POWD.PACK PO PRN (23:15)
[2018-09-26] MEDS ORDERED: DICYCLOMINE HCL 20 MG TABLET PO PRN (23:15)
[2018-09-26] MEDS ORDERED: IBUPROFEN 400 MG TABLET PO PRN (23:15)
[2018-09-26 23:26] LABS: BASOPHILS % (AUTO) 0.4 % (0.0-2.0); EOSINOPHILS % (AUTO) 0.9 % (0.0-7.0); HEMOGLOBIN 14.5 g/dL (10.9-14.3); LYMPHOCYTES # (AUTO) 0.9 K/uL (20.0-40.0); LYMPHOCYTES % (AUTO) 18.7 % (20.5-51.5); MEAN CORPUSCULAR HEMOGLOBIN 31.6 uug (24.7-32.8); MEAN CORPUSCULAR HGB CONC 35 g/dL (32.3-35.6); MEAN CORPUSCULAR VOLUME 91.5 fL (75.5-95.3); MONOCYTES # (AUTO) 0.6 K/uL (2.0-10.0); NEUTROPHILS # (AUTO) 3.4 K/uL (1.8-8.9); PLATELET COUNT (AUTO) 205 K/uL (179-408); RED BLOOD CELL COUNT(AUTO) 4.59 MIL/uL (3.63-4.92); WHITE BLOOD COUNT (AUTO) 5.1 K/uL (3.8-11.8)
[2018-09-26 23:36] LABS: *URINE HCG, QUAL NEGATIVE (NEGATIVE)
[2018-09-26 23:38] LABS: ETHANOL < 3 MG/DL (0-0)
[2018-09-26 23:43] LABS: ALANINE AMINOTRANSFERASE 34 U/L (14-59); ALKALINE PHOSPHATASE 72 U/L (50-136); AMYLASE 38 U/L (25-115); ASPARTATE AMINOTRANSFERASE 19 U/L (15-37); BILIRUBIN,TOTAL 0.5 mg/dL (0.2-1.0); CARBON DIOXIDE 28 mmol/L (21-32); CHLORIDE 102 mmol/L (98-107); CREATININE 0.6 mg/dL (0.6-1.3); GLUCOSE 99 mg/dL (74-106); LIPASE 76 U/L (73-393); MAGNESIUM 1.6 mg/dL (1.8-2.4); POTASSIUM 3.4 mmol/L (3.5-5.1); TOTAL PROTEIN, SERUM 7.3 g/dL (6.4-8.2); UREA NITROGEN, BLOOD 11 mg/dL (7-18)
[2018-09-26 23:47] LABS: *AMPHETAMINE, URINE POSITIVE (NEGATIVE); *BARBITURATE, URINE NEGATIVE (NEGATIVE); *CANNABINOID, URINE NEGATIVE (NEGATIVE); *COCCAINE, URINE POSITIVE (NEGATIVE); *OPIATE, URINE POSITIVE (NEGATIVE); *PHENCYCLIDINE SCREEN,URINE NEGATIVE (NEGATIVE)
[2018-09-27 00:04] LABS: THYROID STIMULATING HORMONE 0.445 mIU/mL (0.358-3.740)
[2018-09-27] MEDS ORDERED: BENZ-13 PO (00:19)
[2018-09-27] MEDS ORDERED: ATOM80CA3 PO (00:19)
[2018-09-27] MEDS ORDERED: SERT100T PO (00:19)
[2018-09-27] MEDS ORDERED: CYCL5TAB PO (00:19)
[2018-09-27] MEDS ORDERED: ATOM60CA PO (00:19)
[2018-09-27] MEDS ORDERED: LAMO100T PO (00:19)
[2018-09-27] MEDS ORDERED: IBUP1TAB12 PO (00:19)
[2018-09-27] MEDS ORDERED: FURO40TA5 PO (00:19)
[2018-09-27] MEDS ORDERED: OLAN10TA23 PO (00:19)
--- NOTE | 2018-09-27 00:50 | NUR ---
V/s refused and COWS Assessment deferred for sleep. Respirations even and unlabored. Will continue to monitor.
--- NOTE | 2018-09-27 04:47 | NUR ---
V/s refused and COWS Assessment deferred for sleep. Respirations even and unlabored. Will continue to monitor.
--- NOTE | 2018-09-27 07:00 | NUR ---
End of shift note Newly admitted patient. Pt was continuously noted with fatigue, agitation, and anxiety. Pt remained in room for entire remainder of shift except to get food from kitchen. Pt remained compliant and cooperative with all aspects of treatment. Pt was not given any PRN medications during shift. Pt has been placed on PRN medications until further evaluation from MD in AM. Pt slept for a total of 7 HRS. Last COWS were deferred due to moderate intoxication and sleep. Respirations even and unlabored. Will endorse to day shift nurse.
[2018-09-27 08:00] VITALS: BP 106/73
--- NOTE | 2018-09-27 08:00 | NUR ---
START OF SHIFT COWS ASSESSMENT Pt 23 y/o female admitted for opiate withdrawal. Pt received in room on bed with eyes closed resting, but easily arousable to name. Pt alert and oriented to name, place, and time. Perrla. Skin warm and moist touch. Respirations even and unlabored. Appears disheveled and unkempt. Clothes and empty drink bottles scattered throughout the room. Encouraged to maintain hygiene. cows=13 @0800. Anxious and restless. Pressured speech noted. Bilateral hand tremors noted. Complaints of intermittent perspiration and chills. Pt also with c/o runny nose, generalized body aches, and piloerection. It was reported that pt slept for7 hours last night. Bed on lowest position with side rails x2 up for safety. Call light within reach. Pt is on prn subutex.
--- NOTE | 2018-09-27 08:53 | NUR ---
PRN SUBUTEX cows=13. Anxious and restless. Bilateral hand tremors. yawned twice. Perspiration on forehead. Complaints of chills and sweats, and generalized discomfort. Also complaints of generalized body aches. Subutex sL prn per MD order given and tolerated well.
[2018-09-27] MEDS: METHOCARBAMOL 750 MG TABLET PO PRN (08:54)
[2018-09-27] MEDS ORDERED: MAGNESIUM OXIDE 400 MG TABLET PO ONE (09:00)
[2018-09-27] MEDS ORDERED: POTASSIUM CHLORIDE 20 MEQ TAB.PRT.SR PO ONE (09:00)
[2018-09-27] MEDS ORDERED: TUBERCULIN,PURIF.PROT.DERIV. 5 TU/0.1 ML TEST ID ONE (09:00)
--- NOTE | 2018-09-27 09:02 | NUR ---
PRN ROBAXIN Pt with c/o body aches 06/22. Robaxin po prn per MD order given.
--- NOTE | 2018-09-27 09:53 | NUR ---
PRN SUBUTEX EVAL cows=8. Pt observed in room on watching television.
--- NOTE | 2018-09-27 09:53 | NUR ---
PRN FILI LATIF Pt states body aches 01/20.
--- NOTE | 2018-09-27 11:01 | NUR ---
Therapist prompted client to attend group therapy.
[2018-09-27 12:00] VITALS: BP 106/63
--- NOTE | 2018-09-27 12:00 | NUR ---
COWS ASSESSMENT cows=10. Anxious and restless. Pressured speech noted. Bilateral hand tremors noted. Irritable. Complaints of generalized discomfort, and nasal congestion.
[2018-09-27] MEDS ORDERED: 4 DAY TAPER BUPRENORPHINE -SERENITY PROTOCOL SL PRN (12:45)
[2018-09-27] MEDS ORDERED: Medication Not On Formulary EA (Cyclobenzaprine Hcl 10 MG) PO PRN (14:15)
[2018-09-27] MEDS: VALACYCLOVIR HCL 500 MG TABLET PO SCH ×2 (15:14→22:04)
[2018-09-27] MEDS: LAMOTRIGINE 100 MG TABLET PO SCH (15:14)
[2018-09-27] MEDS: GABAPENTIN 300 MG CAPSULE PO SCH ×2 (15:15→16:25)
[2018-09-27] MEDS: BUPRENORPHINE HCL 2 MG TAB.SUBL SL SCH ×2 (15:15→22:05)
[2018-09-27] MEDS: LORAZEPAM 1 MG TABLET PO PRN (15:39)
--- NOTE | 2018-09-27 15:39 | NUR ---
PRN ATIVAN Pt anxious and restless. Ativan po prn per Md order given and tolerated well.
[2018-09-27 16:00] VITALS: BP 105/70
--- NOTE | 2018-09-27 16:00 | NUR ---
COWS ASSESSMENT cows=10. Bilateral hand tremors noted. Anxious and restless. Pressured speech noted. Complaints of generalized body aches and discomfort.
--- NOTE | 2018-09-27 16:39 | NUR ---
PRN ATIVAN EVAL Pt states medication effective.
--- NOTE | 2018-09-27 18:38 | NUR ---
END OF SHIFT Pt 23 y/o female admitted for opiate withdrawal. Pt alert and oriented to name, place, and time. Perrla. Skin warm and moist to touch. Respirations even and unlabored. Appears disheveled. Hair uncombed. Clothes and empty drink bottles scattered throughout the room. Encouraged to maintain hygiene. Anxious and restless. Pressured speech. Fidgety. Bilateral hand tremors noted. Complaints of generalized body aches and discomfort. Intermittent perspiration and chills. Isolative to room with no peer interaction and low motivation for self care. Cows= 10 @1600. Pt is on a 4 day subutex taper and is on day 1. Bed on lowest position with side rails x2 up for safety. Call light within reach.
--- NOTE | 2018-09-27 19:16 | NUR ---
Start of shift note Received report from day shift nurse. Pt is a 23 yo female, A+Ox4, presenting to [facility] for medically supervised Opiate withdrawal. Pt was also using Methamphetamines and Cocaine. Pt noted with fatigue, agitation, and anxiety. Pt has HX of anxiety, depression, bipolar disorder, insomnia, stroke, and Left sided mild weakness which will be monitored during shift. Pt is on 4 day Subutex taper, tolerated well. Respirations even and unlabored. Will continue to monitor.
[2018-09-27 20:12] VITALS: BP 123/91
--- NOTE | 2018-09-27 20:12 | NUR ---
COWS Assessment COWS: 9. Pt noted with pulse 82, chills, restlessness, enlarged pupils, stuffy nose, fine tremors, yawning, and anxiety. Respirations even and unlabored. Will continue to monitor.
--- NOTE | 2018-09-28 00:57 | NUR ---
V/s refused and COWS deferred for sleep. Respirations even and unlabored. Will continue to monitor.
--- NOTE | 2018-09-28 04:50 | NUR ---
V/S refused and COWS deferred for sleep. Respirations even and unlabored. Will continue to monitor.
[2018-09-28 07:53] LABS: HEPATITIS B SURFACE AG Negative (Negative)
[2018-09-28 08:00] VITALS: BP 114/82
--- NOTE | 2018-09-28 08:00 | NUR ---
START OF SHIFT COWS ASSESSMENT Pt 23 y/o female admitted for opiate withdrawal. Pt received in room on bed with eyes closed resting, but arousable to name. Pt alert and oriented and to name, place, and time. Perrla. Skin warm and moist to touch. Respirations even and unlabored. Appears disheveled. Hair uncombed. Clothes scattered throughout the room. Encouraged to maintain hygiene. Cows=10 @0800. Anxious and restless. Pressured speech. Bilateral hand tremors noted. Complaints of intermittent perspirations and chills. Generalized discomfort. It was reported that pt slept for6 hours last night. Last cows=9@1999. Pt is on a 4 day subutex taper and is on day 2. Bed on lowest position with side rails x2 up for safety. Call light within reach.
[2018-09-28] MEDS ORDERED: BUPRENORPHINE HCL 2 MG TAB.SUBL SL SCH (09:00)
[2018-09-28] MEDS: GABAPENTIN 300 MG CAPSULE PO SCH ×3 (09:01→16:10)
[2018-09-28] MEDS: SERTRALINE HCL 100 MG TABLET PO SCH (09:01)
[2018-09-28] MEDS: LAMOTRIGINE 100 MG TABLET PO SCH (09:01)
[2018-09-28] MEDS: VALACYCLOVIR HCL 500 MG TABLET PO SCH ×2 (09:01→21:47)
[2018-09-28 12:00] VITALS: BP 110/75
--- NOTE | 2018-09-28 12:00 | NUR ---
COWS ASSESSMENT cows=10.Bilateral hand tremors noted. Anxious and restless. Pressured speech. Irritable. Complaints of generalized discomfort, and body aches.
[2018-09-28] MEDS: CYCLOBENZAPRINE HCL 10 MG TABLET PO PRN (12:04)
[2018-09-28] MEDS: LORAZEPAM 1 MG TABLET PO PRN (12:04)
--- NOTE | 2018-09-28 12:10 | NUR ---
PRN ATIVAN FLEXERIL Pt anxious and restless. Ativan po prn per MD order given. Pt with complaints of generalized muscle aches. Flexeril po prn per MD order given.
[2018-09-28] MEDS: BUPRENORPHINE HCL 2 MG TAB.SUBL SL SCH ×2 (14:16→21:47)
[2018-09-28 16:00] VITALS: BP 141/85
--- NOTE | 2018-09-28 16:00 | NUR ---
COWS ASSESSMENT cows=10. Anxious and restless. Pressured speech. Runny nose. Bilateral hand tremors noted. Complaints of generalized discomfort.
[2018-09-28] MEDS: CLONIDINE HCL 0.1 MG TABLET PO PRN (16:39)
[2018-09-28] MEDS: HYDROXYZINE PAMOATE 25 MG CAPSULE PO PRN (16:39)
--- NOTE | 2018-09-28 16:41 | NUR ---
PRN CATAPRES VISTARIL Pt anxious and restless. Tearful. Catapres po prn per Md order given. Vistaril po prn per MD order given.
--- NOTE | 2018-09-28 17:41 | NUR ---
PRN CATAPRES VISTARIL EVAL pt states medication effective.
--- NOTE | 2018-09-28 18:54 | NUR ---
END OF SHIFT Pt 23 y/o female admitted for opiate withdrawal. Pt alert and oriented to name, place, and time. Perrla. Skin warm and moist to touch. Respirations even and unlabored. Appears disheveled with hair uncombed. Clothes scattered throughout the room and on the floors. Encouraged to maintain hygiene. Anxious and restless. Pressured speech. Irritable. Bilateral hand tremors noted. Complaints of generalized discomfort and body aches. Isolative to the room with minimal peer interaction. Low motivation for self care. Pt attended group activity. Last cows=10 @1600. Pt is on a 4 day subutex taper and is on day 2. Bed on lowest position with side rails x 2 up for safety. Call light within reach.
--- NOTE | 2018-09-28 19:30 | NUR ---
Start of Shift Patient Received. Patient continues on a 4 day Subutex taper. She has been noted to be isolative to room due to physical withdrawal symptoms. Patient received PRN Clonidine and Vistaril with medication noted to be effective. COWS noted to be 10. Upon rounds, patient is noted in bed with eyes closed. Room is noted to be odorous, cluttered with food and clothes. All needs attended to promptly. Will continue to monitor.
[2018-09-28 20:40] VITALS: BP 107/79
--- NOTE | 2018-09-28 21:00 | NUR ---
COWS Assessment Patient continues to be monitored for increased signs and symptoms of withdrawal. Patient is noted with increased anxiety, body aches, restlessness, tremulous to touch, intermittent sweats and chills. Routine medications administered as ordered.
[2018-09-28] MEDS: MIRTAZAPINE 15 MG TABLET PO PRN (22:42)
--- NOTE | 2018-09-28 22:45 | NUR ---
PRN Medication Administration Patient is noted verbalizing inability of falling asleep. PRN Remeron administered. Will continue to monitor.
--- NOTE | 2018-09-28 23:30 | NUR ---
PRN Medication Reassessment Patient is noted in bed with eyes closed. Breathing even and non labored. No signs of restlessness or discomfort noted. PRN Remeron noted to be effective. Will continue to monitor.
--- NOTE | 2018-09-29 00:38 | NUR ---
CIWA and Vitals Patient is noted in bed with eyes closed. Breathing even and non labored. No signs of restlessness or discomfort noted. Vitals refused. CIWA not able to be completed as per order. Will continue to monitor. Addendum: 09/29/18 at 0045 by ROMELIA WARD LVN Clarification Patient is being monitored for COWS. COWS assessment not able to be completed as per order.
--- NOTE | 2018-09-29 04:00 | NUR ---
COWS and Vitals Patient noted in bed with eyes closed. Breathing even and non labored. No signs of restlessness or discomfort noted. COWS not able to be completed as per order. Will continue to monitor.
--- NOTE | 2018-09-29 07:03 | NUR ---
End of Shift Patient is in bed with eyes closed. Breathing even and non labored. Patient continues on a 4 day Subutex taper. She has been noted to be isolative to room and non compliant with group and social activities. Patient received PRN Remeron with medication noted to be effective. She was noted to sleep a total of 9 hours. Last noted CIWA 11. All needs attended to promptly. Will endorse to continue to plan of care as ordered.
[2018-09-29 08:00] VITALS: BP 101/80
--- NOTE | 2018-09-29 08:00 | NUR ---
START OF SHIFT Pt 23 y/o female admitted for opioid withdrawal. Pt received in room on bed with eyes closed, but arousable to name. Pt alert and oriented to name, place, and time. Perrla. Skin warm and moist to touch. Respirations even and unlabored. Appears disheveled and unkempt. Hair uncombed. Clothes, food wrappings, and empty drink bottles scattered throughout the room. Encouraged to maintain hygiene. Cows=11 @0800. Anxious and restless. Pressured speech. Bilateral hand tremors. Complaints of generalized discomfort and intermittent perspiration/ chills. It was reported that pt slept for 9 hours last night. Pt is on 4 day subutex taper and is on day 3. Last cows=11@1999. Bed on lowest position with side rails x2 up for safety. Call light within reach.
[2018-09-29 08:08] LABS: BILIRUBIN,TOTAL 0.3 mg/dL (0.2-1.0); CREATININE 0.6 mg/dL (0.6-1.3); MAGNESIUM 1.6 mg/dL (1.8-2.4); POTASSIUM 4.3 mmol/L (3.5-5.1); TOTAL PROTEIN, SERUM 6.4 g/dL (6.4-8.2)
[2018-09-29] MEDS: FUROSEMIDE 40 MG TABLET PO SCH (08:24)
[2018-09-29] MEDS: VALACYCLOVIR HCL 500 MG TABLET PO SCH ×2 (08:24→20:07)
[2018-09-29] MEDS: GABAPENTIN 300 MG CAPSULE PO SCH ×3 (08:25→16:09)
[2018-09-29] MEDS: SERTRALINE HCL 100 MG TABLET PO SCH (08:25)
[2018-09-29] MEDS: CYCLOBENZAPRINE HCL 10 MG TABLET PO PRN (08:25)
[2018-09-29] MEDS: LAMOTRIGINE 100 MG TABLET PO SCH (08:25)
[2018-09-29] MEDS: BUPRENORPHINE HCL 2 MG TAB.SUBL SL SCH ×3 (08:25→20:07)
--- NOTE | 2018-09-29 08:30 | NUR ---
PRN FLEXERIL Pt with c/o muscle spasm. Flexeril po prn per MD order given .
--- NOTE | 2018-09-29 09:30 | NUR ---
PRN FLEXERIL EVAL Pt states medication effective.
[2018-09-29 12:00] VITALS: BP 95/62
--- NOTE | 2018-09-29 12:27 | NUR ---
COWS ASSESSMENT cows=11. Bilateral hand tremors noted. Anxious and restless. Pressured speech. Irritable. Intermittent perspiration and chills. Complaints of generalized discomfort.
[2018-09-29] MEDS: HYDROXYZINE PAMOATE 25 MG CAPSULE PO PRN (13:24)
--- NOTE | 2018-09-29 13:27 | NUR ---
PRN VISTARIL Anxious and restless. Vistaril po prn per MD order given.
--- NOTE | 2018-09-29 14:27 | NUR ---
PRN VISTARIL EVAL Pt states medication effective.
[2018-09-29] MEDS ORDERED: MAGNESIUM OXIDE 400 MG TABLET PO ONE (15:15)
[2018-09-29 16:00] VITALS: BP 104/67
--- NOTE | 2018-09-29 16:00 | NUR ---
COWS ASSESSMENT cows=11. Anxious and restless. Pressured speech noted. Bilateral hand tremors noted. Irritable. Complaints of generalized discomfort.
--- NOTE | 2018-09-29 18:41 | NUR ---
END OF SHIFT Pt 23 y/o female admitted for opiate withdrawal. Pt alert and oriented to name, place, and time. Perrla. Skin warm and moist to touch. Respirations even and unlabored. Appears disheveled. Hair uncombed. Clothes and food wrappings scattered throughout the room. Encouraged to maintain hygiene. Anxious and restless. Pressured speech. Irritable. Bilateral hand tremors noted. Complaints of generalized body aches. Intermittent perspirations and chills. Pt isolative to room with minimal peer interaction. Pt did not attend group activity today. Last cows=11 @1600. Pt is on a 4 day subutex taper and is on day 3. Bed on lowest position with side rails x2 up for safety. Call light within reach.
--- NOTE | 2018-09-29 19:30 | NUR ---
Start of shift note Received report from day shift nurse. Patient is a 23 year old female admitted for Opiate withdrawal. Patient is on 4 day Subutex taper. On cardiac diet. Patient was given PRN Vistaril. Magnesium was replaced. Last . Patient in the room, resting. Room is dirty. Safety measures in place. Will continue to monitor.
[2018-09-29 20:00] VITALS: BP 108/73
--- NOTE | 2018-09-29 20:00 | NUR ---
COWS assessment Patient reports anxiety, hot and cold sweats, malaise, myalgia, runny nose, abdominal cramping and generalized body aches. COWS 11
[2018-09-29] MEDS: METHOCARBAMOL 750 MG TABLET PO PRN (20:07)
--- NOTE | 2018-09-29 20:07 | NUR ---
PRN Robaxin administration Patient reports generalized body aches. Will monitor for effectiveness
[2018-09-29] MEDS: MIRTAZAPINE 15 MG TABLET PO PRN (20:25)
--- NOTE | 2018-09-29 20:25 | NUR ---
PRN Remeron administration Patient requests for sleep aid. Will monitor for effectiveness
--- NOTE | 2018-09-29 21:07 | NUR ---
PRN Robaxin re-assessment Patient states Robaxin is helpful and effective. Will continue to monitor.
--- NOTE | 2018-09-29 23:00 | NUR ---
PRN Remeron re-assessment Patient lying in bed with eyes closed. Respiration even and unlabored. Will continue to monitor.
[2018-09-30] VITALS: BP 119/73
--- NOTE | 2018-09-30 | NUR ---
COWS deferred Patient lying in bed with eyes closed. Respiration even and unlabored. Will continue to monitor.
[2018-09-30] MEDS: BENZOCAINE/MENTH/CETYLPYRD LOZENGE MM PRN ×4 (03:11→21:16)
[2018-09-30] MEDS: ACETAMINOPHEN 325 MG TABLET PO PRN ×2 (03:11→13:04)
--- NOTE | 2018-09-30 03:11 | NUR ---
PRN Tylenol and one time Cepacol lozenge administration Patient c/o body aches and sore throat. Will monitor for effectiveness
[2018-09-30 04:00] VITALS: BP 112/87
--- NOTE | 2018-09-30 04:00 | NUR ---
COWS deferred Patient lying in bed with eyes closed. Respiration even and unlabored. Will continue to monitor.
--- NOTE | 2018-09-30 04:11 | NUR ---
PRN Tylenol and Cepacol lozenge re-assessment Patient lying in bed with eyes closed. Respiration even and unlabored. Will continue to monitor.
--- NOTE | 2018-09-30 07:22 | NUR ---
End of shift note Patient slept 6 hours. Fluid intake 1400 . Voided x 3. No BM. Scheduled taper and medication ordered, tolerated well and no adverse reaction. Patient was given PRN Robaxin at 2006 for body aches. At 2024, patient was given PRN Remeron for difficulty falling asleep. At 310, patient c/o sore throat and body aches. PRN Tylenol and Cepacol lozenge given. Last 11. Patient in the room most of the shift. Safety measures in place. Will continue to monitor.
--- NOTE | 2018-09-30 07:35 | NUR ---
START OF SHIFT Endorse rcvd from ongoing nurse, client is in room, lying on her back, she sounds asleep, easy to awaken, RR 16, even, non-labored. Client is admitted for medically supervised opioid withdrawal. Last COWS 11 @ 1999. PRN Tylenol 650mg PO for body aches, Robaxin 750mg PO for myalgia, Cepacol lozenge MM for sore throat. Client slept 6 hrs. Call light within reach. Will continue to monitor.
[2018-09-30 08:02] VITALS: BP 92/63
[2018-09-30] MEDS ORDERED: BUPRENORPHINE HCL 2 MG TAB.SUBL SL SCH (09:00)
[2018-09-30] MEDS: GABAPENTIN 300 MG CAPSULE PO SCH ×3 (09:35→16:24)
[2018-09-30] MEDS: LAMOTRIGINE 100 MG TABLET PO SCH (09:36)
[2018-09-30] MEDS: SERTRALINE HCL 100 MG TABLET PO SCH (09:36)
--- NOTE | 2018-09-30 09:36 | NUR ---
COWS 14 Client is in room, she is a/o x 4, she presents with anxious mood, flat affect, flushed facial skin, enlarged pupils, and difficulty concentrating. Client reports agitation, anxiety, difficulty thinking clearly, emotional volatility, fatigue, tremors, abdominal cramps, restless legs, and nasal congestion. Schedule Subutex 2mg SL administered. Will continue to monitor. Call light within reach.
[2018-09-30] MEDS: FUROSEMIDE 40 MG TABLET PO SCH (09:37)
--- NOTE | 2018-09-30 10:39 | NUR ---
PRN Cepacol 1 lozenge MM for sore throat. Will continue to monitor.
--- NOTE | 2018-09-30 11:39 | NUR ---
Reassess PRN Cepacol, client reports relief from sore throat. Will continue to monitor.
[2018-09-30 12:55] VITALS: BP 107/73
--- NOTE | 2018-09-30 13:00 | NUR ---
COWS 11 & PRN Cepacol MM for sore throat, Motrin 400mg PO, Tylenol 650mg PO for body aches, Robaxin 750mg PO for myalgia, Clonidine 0.1mg PO for agitation, Vistaril 50mg PO for anxiety. Call light within reach.
[2018-09-30] MEDS: HYDROXYZINE PAMOATE 25 MG CAPSULE PO PRN (13:04)
[2018-09-30] MEDS: METHOCARBAMOL 750 MG TABLET PO PRN ×2 (13:04→21:16)
[2018-09-30] MEDS: CLONIDINE HCL 0.1 MG TABLET PO PRN ×2 (13:05→21:16)
--- NOTE | 2018-09-30 13:59 | NUR ---
Therapist prompted client to attend all group therapy sessions.
--- NOTE | 2018-09-30 14:00 | NUR ---
Reassess PRN Cepacol MM, Motrin 400mg PO, Tylenol 650mg, Robaxin 750mg, Clonidine 0.1mg, and Vistaril 50mg, client is in bed, she sounds asleep, easy to arouse, RR 16, even, non-labored. Call light within reach.
[2018-09-30] MEDS ORDERED: BENZOCAINE/MENTH/CETYLPYRD LOZENGE MM PRN (14:15)
[2018-09-30] MEDS ORDERED: SERT100T PO (14:31)
[2018-09-30] MEDS ORDERED: GABA-534 PO (14:31)
[2018-09-30] MEDS ORDERED: CYCL5TAB PO (14:31)
[2018-09-30] MEDS ORDERED: CLON0.1T14 PO (14:31)
[2018-09-30] MEDS ORDERED: FURO40TA5 PO (14:31)
[2018-09-30] MEDS ORDERED: [UNRECOGNIZED DRUG - CODE] PO (14:31)
[2018-09-30] MEDS ORDERED: LAMO100T PO (14:31)
[2018-09-30] MEDS: PENICILLIN V POTASSIUM 500 MG TABLET PO SCH ×2 (14:33→21:15)
--- NOTE | 2018-09-30 16:00 | NUR ---
COWS 10 Client presents with anxious mood, flat affect, and agitation. Non-pharmacological measures rendered. Call light within reach.
[2018-09-30 16:22] VITALS: BP 95/57
--- NOTE | 2018-09-30 19:28 | NUR ---
END OF SHIFT Endorse client to incoming nurse, client is in room, a/o x 4. Client continues to present with anxiety, flat effect, and fatigue. Client completed 4 day Subutex taper. Client is schedule for discharge tomorrow am for continuity of treatment. Last COWS 10 @ 1600. PRN medications administered and noted per protocol. Client does not attend group therapy, but is compliant with medication taper medication. Client consumed 50% of meals. Adequate PO fluid intake 1800mL, void x 3. Seizure precautions. Call light within reach.
--- NOTE | 2018-09-30 19:43 | NUR ---
START OF SHIFT NOTE Rcvd report from outgoing nurse. Pt is a 23 y/o female A/O to person, place, time, and purpose. Pt was admitted for medically supervised withdrawal from Opiates. Pt completed a 4 day Subutex taper and is being discharged 10/01. Pt has been presenting w/ fine tremors, body aches, flat affect, and depressed and withdrawn mood. Pt rcvd PRN Cepacol, Motrin, Robaxin, Clonidine, and Tylenol and were noted effective by outgoing nurse. Last COWS 11 @ 1600. Call light is within reach. Pt will continue to be monitored and needs met.
[2018-09-30 20:14] VITALS: BP 111/75
--- NOTE | 2018-09-30 20:16 | NUR ---
COWS ASSESSMENT COWS 10. Pt has been presenting w/ fine tremors, body aches, flat affect, and depressed and withdrawn mood. V/S: T:97.9, P:101, RR:16, SPO2:99, BP:111/75.
[2018-09-30] MEDS: CYCLOBENZAPRINE HCL 10 MG TABLET PO PRN (21:15)
[2018-09-30] MEDS: MIRTAZAPINE 15 MG TABLET PO PRN (21:16)
--- NOTE | 2018-09-30 21:16 | NUR ---
PRN CEPACOL, CLONIDINE, REMERON, ROBAXIN, AND FLEXERIL ADMINISTRATION Cepacol lozenge for throat irritation, Remeron 30mg for sleep, Clonidine 0.1mg for anxiety, Robaxin 750mg for body aches/pain, and Flexeril 10mg for muscle spasms were given. Will reassess pt in 1 hr.
--- NOTE | 2018-09-30 22:16 | NUR ---
PRN CEPACOL, CLONIDINE, REMERON, ROBAXIN, AND FLEXERIL REASSESSMENT Pt is in bed w/ her eyes closed. Pt's respirations are unlabored and even.
--- NOTE | 2018-10-01 00:07 | NUR ---
COWS DEFERRED Pt is in bed w/ her eyes closed. Pt's respirations are unlabored and even.
--- NOTE | 2018-10-01 04:14 | NUR ---
COWS DEFERRED Pt is in bed w/ his eyes closed. Pt's respirations are unlabored and even.
[2018-10-01] MEDS: PENICILLIN V POTASSIUM 500 MG TABLET PO SCH (06:17)
--- NOTE | 2018-10-01 07:13 | NUR ---
END OF SHIFT NOTE Endorsed pt to oncoming nurse. Pt is a 23 y/o female A/O to person, place, time, and purpose. Pt was admitted for medically supervised withdrawal from Opiates. Pt completed a 4 day Subutex taper and is being discharged 10/01. Pt continued presenting w/ fine tremors, body aches, flat affect, and depressed and withdrawn mood. Pt denies any S/I or H/I. PRN Cepacol, Remeron, Robaxin, Clonidine, and Flexeril were given and noted effective. Pt's fluid intake was 1000ml and she slept for 9hrs. Last COWS 10 @ 2000. Call light is within reach.
--- NOTE | 2018-10-01 07:45 | NUR ---
START OF SHIFT Pt is a 23 yr old female, AA&Ox4. Pt was admitted on 09/26/18 for Opiate withdrawal and was on 4 day Subutex taper as ordered. Received report from night worker nurse. Pt was given Remeron PRN, Clonidine PRN, Robaxin PRN and Flexeril PRN during the night. Medication was effective. Last COWS score was 10. Pt remains in bed sleeping with respirations even and unlabored. Skin is intact, warm and moist to touch. Pt is to be discharged today to [facility]. Time of discharge is pending. Will continue to f/u. Safety precautions observed. Will continue to monitor.
[2018-10-01 08:00] VITALS: BP 101/65
[2018-10-01] MEDS: SERTRALINE HCL 100 MG TABLET PO SCH (08:51)
[2018-10-01] MEDS: GABAPENTIN 300 MG CAPSULE PO SCH (08:51)
[2018-10-01] MEDS: FUROSEMIDE 40 MG TABLET PO SCH (08:52)
[2018-10-01] MEDS: LAMOTRIGINE 100 MG TABLET PO SCH (08:52)
[2018-10-01] MEDS: CYCLOBENZAPRINE HCL 10 MG TABLET PO PRN (09:04)
--- NOTE | 2018-10-01 09:04 | NUR ---
PRN GIVEN Pt was c/o muscle aches 5/10. Flexeril 10mg PO PRN was given as ordered. Encouraged increase fluid intake. Will continue to monitor.
--- NOTE | 2018-10-01 10:30 | NUR ---
DISCHARGE NOTE Pt is a 23 yr old female, AA&OX4. Pt was admitted on 09/26/18 for Opiate withdrawal and completed a 4 day Subutex taper as ordered. Pt was cooperative with medication regimen. Pt was c/o anxiety due to discharged but was able to cope with anxiety level. Pt was also c/o muscle aches and was given Flexeril 10mg PO PRN. Medication was effective. Pt was educated on discharged summary and prescriptions. Pt was able to verbalize understanding. Pt was discharged off the unit at 1023 in stable condition. Pt was discharged to [facility]. Pt left with all belongings, valuables and home medications.
== END 2018-10-01 10:23 | disposition other institution (70) | DRG 895 ==
LOC: SRC 20:37
PROVIDERS: ADMIT Family Medicine Addiction Medicine; ATTEND Family Medicine Addiction Medicine
PROC: HZ2ZZZZ Detoxification Services for Substance Abuse Treatment (ICD-10-PCS; principal; 2018-09-26)
PROC: HZ31ZZZ Individual Counseling for Substance Abuse Treatment, Behavioral (ICD-10-PCS; 2018-09-27)
PROC: HZ41ZZZ Group Counseling for Substance Abuse Treatment, Behavioral (ICD-10-PCS; 2018-09-28)
DX: F11.23 Opioid dependence with withdrawal (principal); F31.81 Bipolar II disorder; F14.10 Cocaine abuse, uncomplicated; F15.23 Other stimulant dependence with withdrawal; F17.210 Nicotine dependence, cigarettes, uncomplicated; I25.2 Old myocardial infarction; I25.10 Atherosclerotic heart disease of native coronary artery without angina pectoris; Z95.1 Presence of aortocoronary bypass graft; F43.10 Post-traumatic stress disorder, unspecified; F90.9 Attention-deficit hyperactivity disorder, unspecified type; G47.00 Insomnia, unspecified; J02.0 Streptococcal pharyngitis; F41.1 Generalized anxiety disorder; Z95.2 Presence of prosthetic heart valve; B19.20 Unspecified viral hepatitis C without hepatic coma; Z86.73 Personal history of transient ischemic attack (TIA), and cerebral infarction without residual deficits; Z91.89 Other specified personal risk factors, not elsewhere classified; Z86.19 Personal history of other infectious and parasitic diseases
CPT/HCPCS: 36415; 70030-TC; 80307; 80324; 80353; 80361; 83690; 83735; 84443; 84703; 85025; 86403; 86592; 86705; 86803; 87340; 87806; 93005; G0480